=== PATIENT | male | born 1985 | race Caucasian/White ===

== ENCOUNTER 2017-02-21 20:28 | Emergency (ER) | payer OTHER ==
[~2017-02-21 20:28] MED LIST: APAP/HYDROCODON1 T13 PO; ECO81 PO; METFORMIN HCL1000 MG PO
[2017-02-21 23:28] VITALS: BP 129/83
== END 2017-02-21 23:28 | disposition home or self-care (01) ==
LOC: ED 20:28
DX: S43.491A Other sprain of right shoulder joint, initial encounter (principal); I10 Essential (primary) hypertension; E11.9 Type 2 diabetes mellitus without complications; J45.909 Unspecified asthma, uncomplicated; Z79.899 Other long term (current) drug therapy; W19.XXXA Unspecified fall, initial encounter; Y93.89 Activity, other specified; Y92.89 Other specified places as the place of occurrence of the external cause; Y99.8 Other external cause status
CPT/HCPCS: Q0092

== ENCOUNTER 2017-09-17 15:11 | Emergency (ER) | payer OTHER ==
[2017-09-17 17:49] VITALS: BP 136/92
== END 2017-09-17 17:49 | disposition home or self-care (01) ==
LOC: ED 15:11
DX: A08.4 Viral intestinal infection, unspecified (principal); J45.909 Unspecified asthma, uncomplicated; I10 Essential (primary) hypertension; E11.9 Type 2 diabetes mellitus without complications